=== PATIENT | female | born 1950 | race African-American/Black ===

== ENCOUNTER → 2017-07-03 | Outpatient (CLI) | payer OTHER ==
--- NOTE | 2017-07-03 17:12 | RAD ---
Pelvic ultrasound, 07/03/2017: History: Pelvic pain Transabdominal and transvaginal scans were obtained. The uterus measures 7.5 x 3.4 x 4.7 cm. The central uterine echo complex measures 12 mm in AP dimension. The ovaries were not visualized. No adnexal mass or free pelvic fluid is seen. IMPRESSION: 1. Nonspecific thickening of the central uterine echo complex. 2. Otherwise unremarkable pelvic ultrasound.
== END | disposition home or self-care (01) ==
LOC: US 15:08
PROVIDERS: ATTEND Obstetrics & Gynecology
DX: R10.2 Pelvic and perineal pain (principal)
CPT/HCPCS: 76830; 76856